=== PATIENT | female | born 1975 | race Caucasian/White ===

== ENCOUNTER 2020-02-04 16:12 | Outpatient (CLI) | payer OTHER | END 2020-02-04 16:13 | disposition home or self-care (01) | LOC: COV 16:12 | PROVIDERS: ATTEND Family Medicine | DX: Z20.828 Contact with and (suspected) exposure to other viral communicable diseases (principal) ==

== ENCOUNTER 2022-06-10 07:00 | Outpatient (CLI) | payer OTHER ==
[2022-06-10 22:30] LABS: BACTERIAL VAGINOSIS DNA NEGATIVE (NEGATIVE); CANDIDA GLABRATA DNA NEGATIVE (NEGATIVE); CANDIDA GROUP DNA NEGATIVE (NEGATIVE); CANDIDA KRUSEI DNA NEGATIVE (NEGATIVE); TRICHOMONAS VAGINALIS DNA NEGATIVE (NEGATIVE)
== END 2022-06-10 23:59 | disposition home or self-care (01) ==
LOC: LAB.WC 07:00
PROVIDERS: ATTEND Nurse Practitioner
DX: N89.8 Other specified noninflammatory disorders of vagina (principal)
CPT/HCPCS: 81514

== ENCOUNTER 2022-07-09 11:29 | Outpatient (CLI) | payer OTHER ==
[2022-07-09 11:50] LABS: HCT - HEMATOCRIT 38.9 % (37.0-47.0); HGB - HEMOGLOBIN 12.8 g/dL (12.0-16.0); MEAN CORPUSCULAR HEMOGLOBIN 32.8 pg (27.0-31.0); MEAN CORPUSCULAR HGB CONC 32.9 g/dL (32.0-36.0); MEAN CORPUSCULAR VOLUME 99.7 fL (81.0-99.0); RED BLOOD COUNT 3.9 10^6/uL (4.20-5.40); RED CELL DISTRIBUTION WIDTH 12.2 % (12.0-15.0); WHITE BLOOD COUNT 4.9 x10^3/uL (4.8-10.8)
[2022-07-09 12:09] LABS: ESTIMATED AVERAGE GLUCOSE 94 mg/dL (70-100); HEMOGLOBIN A1c% 4.9 % (4.27-6.07)
[2022-07-09 12:32] LABS: CHOL/HDL RATIO 3.7 (<4.4); CHOLESTEROL 222 mg/dL; HDL CHOLESTEROL 60 mg/dL; LDL CHOLESTEROL,CALCULATED 147 mg/dL; LDL/HDL RATIO 2.5 (<4.4); TRIGLYCERIDES 74 mg/dL; VLDL CHOLESTEROL 15 mg/dL
[2022-07-09 12:39] LABS: T4 (THYROXINE) 7.15 ug/dL (6.09-12.23)
[2022-07-09 12:42] LABS: THYROID STIMULATING HORMONE 0.6 uIU/mL (0.34-5.60)
== END 2022-07-09 11:30 | disposition home or self-care (01) ==
LOC: LAB 11:29
PROVIDERS: ATTEND Nurse Practitioner
DX: Z13.1 Encounter for screening for diabetes mellitus (principal); Z13.29 Encounter for screening for other suspected endocrine disorder; Z13.0 Encounter for screening for diseases of the blood and blood-forming organs and certain disorders involving the immune mechanism
CPT/HCPCS: 36415; 80061; 83036; 83721; 84436; 84443; 84480; 85027

== ENCOUNTER 2022-09-15 13:55 | Emergency (ER) | payer OTHER ==
--- NOTE | 2022-09-15 14:15 | ED Physician Documentation ---
PD HPI CHEST PAIN - Stated complaint Stated Complaint: CHEST PX - Chief complaint Chief Complaint: Cardiac - History obtained from History obtained from: Patient - History of Present Illness Timing - onset: Today Timing - onset during: Rest Timing - duration: Hours Timing - details: Gradual onset, Still present Pain level max: 4 Pain level now: 3 Quality: Pressure, Pain Location: Left chest Radiation: Back Improved by: Nothing Worsened by: Other (nothing) Associated symptoms: No: Shortness of air, Diaphoresis, Nausea, Vomiting, Feeling faint / dizzy, General Weakness, Palpitations, Cough Similar symptoms before: Has not had sx before Recently seen: Not recently seen - Additional information Additional information: Tremaine Evans is a 47-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 She was at work today when she began to develop substernal pain on the left side that radiated to her back. She denies any nausea diaphoresis lightheadedness or radiation of the pain. She denies any modifying factors. She rates the pain as 3-4 out of 10. She states that is not peaked beyond that. She states it is constant. She does do a lot of heavy lifting at work and she worked last week. She has a history of Monika-Danlos syndrome and is otherwise healthy she has some mild diastolic hypertension that she has stopped treating. PD PAST MEDICAL HISTORY - Present Medications Home Medications: Ambulatory Orders Medication Instructions Recorded Confirmed amLODIPine [Norvasc] 5 mg PO DAILY 09/15/22 09/15/22 buPROPion HCL [Bupropion Xl] 150 mg PO DAILY 09/15/22 09/15/22 - Allergies Allergies/Adverse Reactions: Allergies Allergy/AdvReac Type Severity Reaction Status Date / Time acetaminophen [From Tylenol] AdvReac Emesis Verified 09/15/22 14:06 latex AdvReac Rash Verified 09/15/22 14:06 Results - Vitals Vitals: Vital Signs - 24 hr 09/15/22 09/15/22 09/15/22 13:58 14:00 14:53 Temperature 37.1 C Heart Rate 85 78 Respiratory 18 17 20 Rate Blood Pressure 145/103 H O2 Saturation 100 100 09/15/22 09/15/22 09/15/22 14:59 15:15 15:42 Temperature Heart Rate 79 79 84 Respiratory 16 19 Rate Blood Pressure 126/94 H 125/92 H O2 Saturation 100 100 09/15/22 16:00 Temperature Heart Rate Respiratory 16 Rate Blood Pressure O2 Saturation Oxygen O2 Source Room air - EKG (time done) 1354 EKG releavant findings:: EKG personally interpreted by author of this note. Relevant findings are: Rate: Rate (enter#) (86) Rhythm: NSR Ischemia: Normal ST segments Compare to prior EKG: Old EKG unavailable Computer interpretation: Disagree with computer (I do not see ST elevation in inferior leads, I do not seen negative T in V1or V2) - Labs Labs: Laboratory Tests 09/15/22 09/15/22 09/15/22 14:07 14:07 14:07 WBC 7.5 RBC 3.81 L Hgb 12.4 Hct 37.2 MCV 97.6 MCH 32.5 H MCHC 33.3 RDW 12.2 Plt Count 304 MPV 10.0 Neut # (Auto) 4.7 Lymph # (Auto) 1.9 [place] # (Auto) 0.7 Eos # (Auto) 0.1 Baso # (Auto) 0.0 Absolute Nucleated RBC 0.00 Nucleated RBC % 0.0 Sodium 140 Potassium 3.5 Chloride 106 Carbon Dioxide 26 Anion Gap 8.0 BUN 15 Creatinine 0.9 Estimated GFR (MDRD) 67 L Glucose 97 Calcium 9.4 Total Bilirubin 0.5 AST 21 ALT 17 Alkaline Phosphatase 51 Troponin I High Sens < 2.3 L Total Protein 7.9 Albumin 4.4 Globulin 3.5 Albumin/Globulin Ratio 1.3 Lipase 47 - Rads (name of study) chest Relevant Findings:: Prelim report reviewed (Impression: No acute cardiopulmonary process.), EMP independent interpretation of test PD Medical Decision Making - ED course Complexity details: reviewed results, re-evaluated patient, considered differential, d/w patient Reviewed Lab Results: We reviewed a complete blood count showing a normal white blood cell count normal hemoglobin hematocrit and platelets we reviewed the patient's chemistries showing normal electrolytes normal kidney and liver function and high- sensitivity troponin was less than 2.3. My interpretation of these benign- appearing laboratory results are a it is unlikely that this represents a coronary syndrome and in addition this does not add to specific diagnosis. It does aid with elimination of overwhelming infection, acute blood loss, kidney or liver dysfunction, and electrolyte abnormality. We obtained a chest x-ray and find no evidence of infiltrate effusion hemo or pneumothorax, the aortic knob appears normal and there is no widening of the mediastinum to suggest dissection or rupture. ED course: The patient presented to the emergency department with left-sided chest pain radiating to her back that have been present for several hours when she arrived to the emergency department. She had persistence of this pain and no modifying factors. She works as a flight nurse and does a lot of heavy lifting. With her complaints of chest pain and we initiated a cardiac work-up. We gained IV access and obtained an electrocardiogram chest x-ray and blood work. The patient's electrocardiogram was unremarkable her chest x-ray again was unremarkable she does have a history of Monika-Danlos syndrome and I see no evidence of dissection or rupture on a plain film she is a thin woman with good imaging. We initially considered doing CT scan but we did not have a CT scanner available and after reviewing the imaging and the history this was thought to be unnecessary. All of her tests were reassuring and negative. I turned my attention to an explanation for a potential chest wall strain and asked the patient about her work 5 days prior to her arrival to the emergency department and she indicated that she had been doing significant lifting with heavy patients continuously over the past 5 days.I suspect this patient's chest pain is related to a chest wall strain and I discussed these findings with the patient and the expectations for recovery. Departure - Departure Disposition: 01 Home, Self Care Clinical Impression: Strain of chest wall Qualifiers: Encounter type: initial encounter Qualified Code(s): S29.011A - Strain of muscle and tendon of front wall of thorax, initial encounter Condition: Stable Instructions: ED Chest Pain Costochondritis Follow-Up: Cathy Gonzalez ARNP [Primary Care Provider] - Comments: Maria Del Rosario, today your test were negative for any evidence of coronary syndrome or dissection, hemo or pneumothorax, pneumonia or other specific reasons of chest pain. A frequent reason for chest pain is a strain of the chest wall and this usually occurs sometime before the onset of symptoms, usually about 5 days befor e the onset of pain. Your job is strenuous and usually you will not feel the pain when you do the strain but 5 days later. Anti-inflammatory and steroid will help with the pain. Forms: Activity restrictions Discharge Date/Time: 09/15/22 16:12
[2022-09-15 14:21] LABS: BASOPHILS % (AUTO) 0.5 %; EOSINOPHILS # (AUTO) 0.1 10^3/uL (0.0-0.7); EOSINOPHILS % (AUTO) 1.5 %; HCT - HEMATOCRIT 37.2 % (37.0-47.0); HGB - HEMOGLOBIN 12.4 g/dL (12.0-16.0); LYMPHOCYTES # (AUTO) 1.9 10^3/uL (1.5-3.5); LYMPHOCYTES % (AUTO) 25.4 %; MEAN CORPUSCULAR HEMOGLOBIN 32.5 pg (27.0-31.0); MEAN CORPUSCULAR HGB CONC 33.3 g/dL (32.0-36.0); MEAN CORPUSCULAR VOLUME 97.6 fL (81.0-99.0); MONOCYTES # (AUTO) 0.7 10^3/uL (0.0-1.0); MONOCYTES % (AUTO) 8.8 %; NEUTROPHILS # (AUTO) 4.7 10^3/uL (1.5-6.6); NEUTROPHILS % (AUTO) 63.5 %; PLT - PLATELET COUNT 304 10^3/uL (130-450); RED BLOOD COUNT 3.81 10^6/uL (4.20-5.40); RED CELL DISTRIBUTION WIDTH 12.2 % (12.0-15.0); WHITE BLOOD COUNT 7.5 x10^3/uL (4.8-10.8)
[2022-09-15 14:42] LABS: ALBUMIN 4.4 g/dL (3.2-5.5); ALBUMIN/GLOBULIN RATIO 1.3 (1.0-2.2); BILIRUBIN,TOTAL 0.5 mg/dL (0.2-1.0); CALCIUM 9.4 mg/dL (8.5-10.3); CREATININE 0.9 mg/dL (0.4-1.0); POTASSIUM 3.5 mmol/L (3.5-5.0); TOTAL PROTEIN 7.9 g/dL (6.7-8.2)
--- NOTE | 2022-09-15 15:04 | XRAY Report ---
PROCEDURE: Chest 1 View X-Ray INDICATIONS: Chest pain TECHNIQUE: One view of the chest was acquired. COMPARISON: None. FINDINGS: Surgical changes and devices: None. Lungs and pleura: No pleural effusions or pneumothorax. Lungs are clear. Mediastinum: Mediastinal contours appear normal. Heart size is normal. Bones and chest wall: No suspicious bony lesions. Overlying soft tissues appear unremarkable. IMPRESSION: No acute cardiopulmonary process. Reviewed by: Yovanny Oquendo MD on 09/15/2022 3:02 PM PDT Approved by: Yovanny Oquendo MD on 09/15/2022 3:02 PM PDT Station ID: [id number]
[2022-09-15 15:19] VITALS: BP 125/92
== END 2022-09-15 16:12 | disposition home or self-care (01) ==
LOC: ED 13:55
DX: S29.011A Strain of muscle and tendon of front wall of thorax, initial encounter (principal); X50.0XXA Overexertion from strenuous movement or load, initial encounter; Y93.F2 Activity, caregiving, lifting; Y99.0 Civilian activity done for income or pay; Q79.60 Ehlers-Danlos syndrome, unspecified; G44.86 Cervicogenic headache; G43.709 Chronic migraine without aura, not intractable, without status migrainosus; M50.322 Other cervical disc degeneration at C5-C6 level
CPT/HCPCS: 36415; 80053; 83690; 84484; 85025; 93005; 99283; 99284

== ENCOUNTER 2022-09-15 16:35 | Outpatient (CLI) | payer OTHER ==
--- NOTE | 2022-09-15 17:28 | XRAY Report ---
PROCEDURE: Cervical Spine 2 View INDICATIONS: CERVICOGENIC HEADACHE, MIGRAINE, CHRONIC TECHNIQUE: 3 view(s) of the cervical spine were acquired. COMPARISON: None. FINDINGS: Bones: No fractures or dislocations to the T1 level. Degenerative endplate changes, loss of disc hei ght and mild bilateral facet hypertrophic changes are seen at C4-5 through C6-7 levels. The lateral m asses of C1 appear intact on the odontoid view. No suspicious bony lesions. Soft tissues: No prevertebral soft tissue swelling. IMPRESSION: Degenerative disc disease in mid to lower cervical spine. No acute fracture or dislocati on. Reviewed by: Ayad Hermosillo MD on 09/15/2022 5:27 PM PDT Approved by: Ayad Hermosillo MD on 09/15/2022 5:27 PM PDT Station ID: [id number]
== END 2022-09-15 16:36 | disposition home or self-care (01) ==
LOC: DI 16:35
PROVIDERS: ATTEND Nurse Practitioner
DX: G44.86 Cervicogenic headache (principal); G43.709 Chronic migraine without aura, not intractable, without status migrainosus; M50.322 Other cervical disc degeneration at C5-C6 level

== ENCOUNTER 2023-07-27 16:26 | Outpatient (CLI) | payer OTHER ==
--- NOTE | 2023-07-27 17:24 | XRAY Report ---
PROCEDURE: Elbow 1-2V RT INDICATIONS: RIGHT ELBOW JOINT PAIN TECHNIQUE: 2 views of the elbow were acquired. COMPARISON: None. FINDINGS: Bones: No fractures or dislocations. No suspicious bony lesions. Soft tissues: No effusion. No suspicious soft tissue calcifications or masses. IMPRESSION: No acute bony abnormality. Reviewed by: Shakir Saeed MD on 07/27/2023 5:23 PM PDT Approved by: Shakir Saeed MD on 07/27/2023 5:23 PM PDT Station ID: [id number]
== END 2023-07-27 16:27 | disposition home or self-care (01) ==
LOC: DI 16:26
PROVIDERS: ATTEND Physician Assistant Surgical
DX: M25.521 Pain in right elbow (principal)